=== PATIENT | male | born 1990 | race Two or more races ===

== ENCOUNTER 2022-09-24 16:04 | Emergency (ER) | payer OTHER ==
[~2022-09-24] VITALS: Ht 172.7 cm; Wt 72.6 kg
--- NOTE | 2022-09-24 16:26 | NUR ---
[id number] FOR OD ON FENTANYL. NARCAN 2 MG IV GIVEN ON THE SCENE. THE PATIENT IS ALERT AND ORIENTED X4. DENIES PAIN. IN ROOM AIR AND DENIES SOB. RESPIRATION REGULAR AND UNLABORED. WILL CONTINUE TO MONITOR THE PATIENT.
[2022-09-24] MEDS ORDERED: NALO1DIS2 IJ (19:56)
[2022-09-25 00:30] VITALS: BP 138/73
== END 2022-09-25 00:31 | disposition home or self-care (01) ==
LOC: ER 16:15
DX: T40.411A Poisoning by fentanyl or fentanyl analogs, accidental (unintentional), initial encounter (principal); Z79.899 Other long term (current) drug therapy; Y92.89 Other specified places as the place of occurrence of the external cause
CPT/HCPCS: 71045-TC